=== PATIENT | male | born 1990 | race African-American/Black ===

== ENCOUNTER 2020-10-31 10:51 | Emergency (ER) | payer MEDICAID, OTHER ==
[~2020-10-31] VITALS: Ht 180.3 cm; Wt 93.0 kg
[2020-10-31 11:56] VITALS: BP 146/88
== END 2020-10-31 12:15 | disposition home or self-care (01) ==
LOC: ER 10:51
DX: S52.571A Other intraarticular fracture of lower end of right radius, initial encounter for closed fracture (principal); S62.114A Nondisplaced fracture of triquetrum [cuneiform] bone, right wrist, initial encounter for closed fracture; F17.210 Nicotine dependence, cigarettes, uncomplicated; W01.0XXA Fall on same level from slipping, tripping and stumbling without subsequent striking against object, initial encounter; Y93.I9 Activity, other involving external motion; Y92.488 Other paved roadways as the place of occurrence of the external cause; Y99.8 Other external cause status
CPT/HCPCS: 29125; 73110; 73130